=== PATIENT | female | born 1995 | race Caucasian/White ===

== ENCOUNTER 2023-05-26 02:46 | Outpatient (CLI) ==
[~2023-05-26] VITALS: Ht 180.3 cm; Wt 91.1 kg
[2023-05-26 03:07] VITALS: BP 124/72
[2023-05-26] MEDS ORDERED: PRENTAB9 PO (03:51)
[2023-05-26] MEDS ORDERED: AUGM250S13 PO (03:51)
[2023-05-26] MEDS ORDERED: CLIN150C17 PO (03:51)
[2023-05-26] MEDS ORDERED: HOME MED LIST COMPLETE! XX SCH (03:55)
== END 2023-05-26 06:06 | disposition home or self-care (01) ==
LOC: M LDO 02:46
PROVIDERS: ATTEND Advanced Practice Midwife
DX: O47.1 False labor at or after 37 completed weeks of gestation (principal); Z3A.39 39 weeks gestation of pregnancy; Z79.2 Long term (current) use of antibiotics; Z79.899 Other long term (current) drug therapy
CPT/HCPCS: 59025; 76815; G0463

== ENCOUNTER 2023-05-31 16:22 | Outpatient (CLI) ==
[~2023-05-31] VITALS: Ht 180.3 cm; Wt 93.2 kg
[~2023-05-31 16:22] MED LIST: AUGM250S13 PO; CLIN150C17 PO; PRENTAB9 PO
[2023-05-31 16:47] VITALS: BP 119/74
[2023-05-31] MEDS ORDERED: HOME MED LIST COMPLETE! XX SCH (17:10)
== END 2023-05-31 17:32 | disposition home or self-care (01) ==
LOC: M LDO 16:22
PROVIDERS: ATTEND Obstetrics & Gynecology
DX: O47.1 False labor at or after 37 completed weeks of gestation (principal); Z3A.40 40 weeks gestation of pregnancy
CPT/HCPCS: 59025; G0463

== ENCOUNTER 2023-06-04 07:36 | Inpatient (IN) | payer OTHER ==
[~2023-06-04] VITALS: Ht 180.3 cm; Wt 91.6 kg
[2023-06-04] VITALS (15 sets, daily range): BP systolic 100–131; BP diastolic 64–81; O2SAT 97
[2023-06-04] MEDS: LACTATED RINGER'S 1000 ML IV STA (07:38)
[2023-06-04] MEDS: LR 1,000 ML IV SCH ×3 (07:40→15:05)
[2023-06-04] MEDS ORDERED: CARBOPROST TROMETHAMINE 250 MCG/ML AMP IM PRN (07:40)
[2023-06-04] MEDS ORDERED: METHYLERGONOVINE MALEATE 0.2MG/ML 1ML VIAL IM PRN ×2 (07:40→15:05)
[2023-06-04] MEDS ORDERED: TRANEXAMIC ACID INJection 1,000 MG in NS 100 ML IV PRN (07:40)
[2023-06-04] MEDS: miSOPROStol 50MCG 1/2 TABLET SL PRN (08:44)
[2023-06-04 08:46] LABS: HEMATOCRIT 35.9 % (36.0-47.0); HEMOGLOBIN 12.3 g/dl (12.0-15.5); MEAN CORPUSCULAR HEMOGLOBIN 31.7 pg (27.0-33.0); MEAN CORPUSCULAR HGB CONC 34.3 g/dl (32.0-36.5); MEAN CORPUSCULAR VOLUME 92.5 fl (80.0-96.0); PLATELET COUNT, AUTOMATED 232 10^3/uL (150-450); RED BLOOD COUNT 3.88 10^6/uL (4.00-5.40); WHITE BLOOD COUNT 9.7 10^3/uL (4.0-10.0)
[2023-06-04] MEDS ORDERED: HOME MED LIST COMPLETE! XX SCH (09:45)
[2023-06-04] MEDS ORDERED: OXYTOCIN DRIP 30 UNITS in IV 1 EA IV SCH ×2 (13:10→15:05)
[2023-06-04] MEDS: OXYTOCIN DRIP 30 UNITS in IV 1 EA IV PRN ×2 (14:27→14:56)
[2023-06-04] MEDS: LIDOCAINE 1% MDV 20ML VIAL INFIL PRN (14:27)
[2023-06-04] MEDS ORDERED: LIDOCAINE 1% MDV 50ML VIAL As Ordered ONE (14:48)
[2023-06-04] MEDS: LIDOCAINE 1% MDV 50ML VIAL SC ONE (14:57)
[2023-06-04] MEDS ORDERED: RHOGAM 300MCG (1500IU) INJ IM SCH (15:05)
[2023-06-04] MEDS ORDERED: IBUPROFEN 600MG TAB PO PRN (15:05)
[2023-06-04] MEDS ORDERED: ONDANSETRON 4MG 2ML VIAL IV PRN (15:05)
[2023-06-04] MEDS ORDERED: METOCLOPRAMIDE INJ 10MG/2ML VIAL IV PRN (15:05)
[2023-06-04] MEDS ORDERED: ACETAMINOPHEN TAB 650MG DOSE (2X325MG) PO PRN (15:05)
[2023-06-04] MEDS: IBUPROFEN 800 MG TAB PO PRN (15:31)
[2023-06-04] MEDS: DIBUCAINE 1% OINTMENT 30GM TOP PRN (17:06)
[2023-06-04] MEDS: ACETAMINOPHEN 500 MG TAB PO PRN (17:07)
[2023-06-04] MEDS: DOCUSATE SODIUM 100MG CAPSULE PO PRN (20:16)
[2023-06-05 06:00] VITALS: BP 117/68; O2SAT 98
[2023-06-05] MEDS ORDERED: COLA100C5 PO (07:43)
[2023-06-05] MEDS ORDERED: ACET1TAB55 PO (07:43)
[2023-06-05] MEDS ORDERED: IBUP-1022 PO (07:43)
[2023-06-05] MEDS ORDERED: PRENATAL VITAMINS CHEWABLE TABLET PO SCH (09:00)
[2023-06-05] MEDS: PRENATAL VITAMINS CHEWABLE TABLET PO SCH (09:00)
[2023-06-06] MEDS ORDERED: MEASLES,MUMPS,RUBELLA VACCINE INJ (MMR-II) SC.IMMUN ONE (09:00)
== END 2023-06-05 18:19 | disposition home or self-care (01) | DRG 807 ==
LOC: M LDI 07:36 → M OBS 16:40
PROVIDERS: ADMIT Obstetrics & Gynecology; ATTEND Obstetrics & Gynecology
PROC: 10E0XZZ Delivery of Products of Conception, External Approach (ICD-10-PCS; principal; 2023-06-04)
PROC: 0KQM0ZZ Repair Perineum Muscle, Open Approach (ICD-10-PCS; 2023-06-04)
PROC: 3E0P7GC Introduction of Other Therapeutic Substance into Female Reproductive, Via Natural or Artificial Opening (ICD-10-PCS; 2023-06-04)
DX: O70.1 Second degree perineal laceration during delivery (principal); Z37.0 Single live birth; Z3A.40 40 weeks gestation of pregnancy

== ENCOUNTER → 2024-11-29 | Outpatient (CLI) | payer OTHER ==
[~2024-11-29] MED LIST changes: +ACET1TAB55 PO; +COLA100C5 PO; +IBUP-1022 PO
== END ==
LOC: M WHC 15:17
PROVIDERS: ATTEND Nurse Practitioner Family
DX: Z34.82 Encounter for supervision of other normal pregnancy, second trimester (principal); Z3A.20 20 weeks gestation of pregnancy

== ENCOUNTER → 2025-02-19 | Outpatient (CLI) | payer OTHER ==
[~2025-02-19] MED LIST changes: -IBUP-1022 PO; +IBUP600T42 PO
== END ==
LOC: M WHC 15:14
PROVIDERS: ATTEND Student in an Organized Health Care Education/Training Program
DX: Z34.83 Encounter for supervision of other normal pregnancy, third trimester (principal); Z3A.31 31 weeks gestation of pregnancy

== ENCOUNTER 2025-03-05 20:16 | Outpatient (CLI) | payer OTHER ==
[~2025-03-05] VITALS: Ht 180.3 cm; Wt 93.3 kg
[2025-03-05 20:29] VITALS: BP 108/59
[2025-03-05] MEDS ORDERED: HOME MED LIST COMPLETE! XX SCH (20:30)
== END 2025-03-05 20:59 | disposition home or self-care (01) ==
LOC: M LDO 20:16
PROVIDERS: ATTEND Obstetrics & Gynecology
DX: O26.893 Other specified pregnancy related conditions, third trimester (principal); R10.10 Upper abdominal pain, unspecified; Z3A.33 33 weeks gestation of pregnancy
CPT/HCPCS: 59025; G0463

== ENCOUNTER → 2025-03-19 | Outpatient (REF) | payer OTHER | LOC: M SFHCWAGY 16:59 | PROVIDERS: ATTEND Advanced Practice Midwife | DX: Z34.93 Encounter for supervision of normal pregnancy, unspecified, third trimester (principal); Z3A.35 35 weeks gestation of pregnancy ==

== ENCOUNTER 2025-04-14 16:16 | Outpatient (CLI) | payer OTHER ==
[~2025-04-14] VITALS: Ht 180.3 cm; Wt 92.4 kg
[2025-04-14] MEDS ORDERED: UNIS25TA5 PO (16:43)
[2025-04-14] MEDS ORDERED: FAMO20TA PO (16:43)
[2025-04-14] MEDS ORDERED: TUMS500C PO (16:43)
[2025-04-14] MEDS ORDERED: HOME MED LIST COMPLETE! XX SCH (16:45)
[2025-04-14 16:47] VITALS: BP 109/71; O2SAT 96
[2025-04-14 16:48] VITALS: O2SAT 97
== END 2025-04-14 17:17 | disposition home or self-care (01) ==
LOC: M LDO 16:16
PROVIDERS: ATTEND Specialist
DX: O47.1 False labor at or after 37 completed weeks of gestation (principal); O26.893 Other specified pregnancy related conditions, third trimester; N89.8 Other specified noninflammatory disorders of vagina; Z3A.39 39 weeks gestation of pregnancy
CPT/HCPCS: 59025; G0463

== ENCOUNTER 2025-04-21 08:21 | Inpatient (IN) | payer OTHER ==
[~2025-04-21] VITALS: Ht 180.3 cm; Wt 94.3 kg
[2025-04-21] VITALS (10 sets, daily range): BP systolic 91–118; BP diastolic 53–74
[~2025-04-21 08:21] MED LIST changes: +FAMO20TA PO; +TUMS500C PO; +UNIS25TA5 PO
[2025-04-21] MEDS ORDERED: HOME MED LIST COMPLETE! XX SCH (08:50)
[2025-04-21 09:33] LABS: PLATELET COUNT, AUTOMATED 266 10^3/uL (150-450)
[2025-04-21] MEDS ORDERED: OXYTOCIN INJ 10UNITS/ML 1ML VIAL IM PRN (09:55)
[2025-04-21] MEDS ORDERED: OXYTOCIN DRIP 30 UNITS in IV 1 EA IV PRN (09:55)
[2025-04-21] MEDS ORDERED: METHYLERGONOVINE MALEATE 0.2 MG/ML 1 ML VIAL IM PRN (09:55)
[2025-04-21 10:32] LABS: HIV 1&2 SCREEN NEGATIVE (NEGATIVE)
[2025-04-21] MEDS: miSOPROStol 25 MCG 1/4 TABLET PO ONE (10:33)
[2025-04-21 10:40] LABS: HEPATITIS C VIRUS ABY INDEX 0.07 INDEX (<0.8)
[2025-04-21] MEDS: LR 500 ML IV ONE (15:15)
[2025-04-21] MEDS: miSOPROStol 50 MCG 1/2 TABLET PO ONE (15:24)
[2025-04-21] MEDS: miSOPROStol 50 MCG 1/2 TABLET PO SCH (19:32)
[2025-04-22] VITALS (11 sets, daily range): BP systolic 108–129; BP diastolic 65–75; TEMP 97.5; O2SAT 98
[2025-04-22] MEDS: OXYTOCIN DRIP 30 UNITS in IV 1 EA IV PRN (14:19)
[2025-04-22] MEDS: LIDOCAINE 1% MDV 20 ML VIAL INFIL PRN (14:20)
[2025-04-22] MEDS: TRANEXAMIC ACID INJection 1,000 MG in NS 100 ML IV PRN (14:40)
[2025-04-22] MEDS ORDERED: ANUSOL HC CREAM 30 GM TOP PRN (14:55)
[2025-04-22] MEDS ORDERED: ACETAMINOPHEN 325 MG TAB PO PRN (14:55)
[2025-04-22] MEDS ORDERED: RHOGAM 300MCG (1500IU) INJ IM SCH (14:55)
[2025-04-22] MEDS ORDERED: ONDANSETRON 4MG/2ML VIAL IV PRN ×2 (14:55→16:35)
[2025-04-22] MEDS ORDERED: IBUPROFEN 600 MG TAB PO PRN (14:55)
[2025-04-22] MEDS ORDERED: MOM 30 ML SUSPENSION UDC PO PRN (14:55)
[2025-04-22] MEDS: ACETAMINOPHEN 500 MG TAB PO PRN (15:02)
[2025-04-22] MEDS: IBUPROFEN 800 MG TAB PO PRN (15:03)
[2025-04-22] MEDS ORDERED: diphenhydrAMINE 50 MG/ML VIAL IV PRN (16:35)
[2025-04-22] MEDS ORDERED: NALOXONE INJ 0.4 MG/1 ML VIAL IV PRN (16:35)
[2025-04-22] MEDS ORDERED: EPIDURAL/PCA KEYS XX PRN (16:35)
[2025-04-22] MEDS: FENTANYL/ROPIVACAINE/NACL BAG 100 ML EPIDURAL SCH (16:35)
[2025-04-22] MEDS ORDERED: LR 500 ML IV PRN (16:35)
[2025-04-22] MEDS: DIBUCAINE 1% OINTMENT 30 GM TOP PRN (18:07)
[2025-04-23 06:00] VITALS: BP 128/69; O2SAT 99
[2025-04-23] MEDS: PRENATAL VITAMINS CHEWABLE TABLET PO SCH (08:31)
[2025-04-23] MEDS: DOCUSATE SODIUM 100 MG CAPSULE PO PRN (08:55)
[2025-04-23] MEDS ORDERED: ACET-683 PO (13:06)
[2025-04-24] MEDS ORDERED: MEASLES,MUMPS,RUBELLA VACCINE INJ (MMR-II) SC.IMMUN ONE (09:00)
== END 2025-04-23 15:30 | disposition home or self-care (01) | DRG 807 ==
LOC: M LDI 08:21 → M OBS 04-22 16:42
PROVIDERS: ADMIT Obstetrics & Gynecology; ATTEND Advanced Practice Midwife
PROC: 3E0P7GC Introduction of Other Therapeutic Substance into Female Reproductive, Via Natural or Artificial Opening (ICD-10-PCS; 2025-04-21)
PROC: 10E0XZZ Delivery of Products of Conception, External Approach (ICD-10-PCS; principal; 2025-04-22)
PROC: 0KQM0ZZ Repair Perineum Muscle, Open Approach (ICD-10-PCS; 2025-04-22)
DX: O70.1 Second degree perineal laceration during delivery (principal); Z37.0 Single live birth; O69.81X0 Labor and delivery complicated by cord around neck, without compression, not applicable or unspecified; Z3A.40 40 weeks gestation of pregnancy